=== PATIENT | female | born 1980 ===

== ENCOUNTER → 2018-02-18 | Outpatient (REF) ==
[~2018-02-18] MED LIST: AMOX-559 PO; CLAR-1 PO; CLOB15OI16 TP; KET10 PO; NORG1TAB95 PO; OMEP40CA48 PO; ORP100 PO; PREVPACPT PO
== END ==
DX: Z02.9 Encounter for administrative examinations, unspecified (principal)

== ENCOUNTER → 2018-02-24 | Outpatient (CLI) | payer OTHER | LOC: LAB 07:29 | PROVIDERS: ATTEND Surgery | DX: R10.9 Unspecified abdominal pain (principal); Z86.19 Personal history of other infectious and parasitic diseases | CPT/HCPCS: 83010 ==

== ENCOUNTER → 2018-02-27 | Outpatient (REF) ==
[2018-02-27 10:38] LABS: LDL CHOLESTEROL 103 mg/dl
== END ==
DX: Z02.9 Encounter for administrative examinations, unspecified (principal)
CPT/HCPCS: 36415